=== PATIENT | female | born 1995 | race Caucasian/White ===

== ENCOUNTER 2016-04-30 12:12 | Emergency (ER) | payer SELFPAY ==
[2016-04-30 12:43] VITALS: BP 137/72; PULSE 108; TEMP 98.4; BMI 35.2
--- NOTE | 2016-04-30 12:48 | EDPRACDOC ---
- General Information Stated Complaint: LEFT ARM ABSCESS Time Seen by Provider: 04/30/16 12:41 Information Source: Patient Home Medications: Home Medications Ibuprofen 800 mg PO TID PRN #30 tablet 03/26/16 Ondansetron HCl [Zofran] 4 mg PO Q8H PRN #15 tab 03/26/16 Clindamycin [Cleocin] 300 mg PO TID #60 capsule 03/31/16 Pentazocine HCl/Naloxone HCl [Talwin Nx Tablet] 1 each PO Q6 #10 tablet Sulfamethoxazole/Trimethoprim [Bactrim Ds Tablet] 1 tab PO BID #20 tab 04/02/16 Cephalexin Monohydrate [Keflex] 500 mg PO QID #28 cap 04/30/16 Ketorolac Tromethamine 10 mg PO Q8H PRN #15 tab 04/30/16 Sulfamethoxazole/Trimethoprim [Bactrim Ds Tablet] 1 tab PO BID #14 tab 04/30/16 Allergies/Adverse Reactions: Allergies Allergy/AdvReac Type Severity Reaction Status Date / Time No Known Allergies Allergy Verified 04/02/16 07:55 - History of Present Illness Onset: 1 week HPI: Pt c/o L AC abscess x 1 week. Denies fever, red streaking. states IV drug abuser in past. R hand dominate Location: Reports: Extremity (L ac) Last Tetanus: Yes Relevent History Of: Reports: IV Drug Use Prior Abscess: Reports: Different Pain: Reports: Moderate Quality: Reports: Painful, Red Associated Signs & Symptoms: Reports: None ED Past Medical History - History Reviewed Yes Nurses notes reviewed and agree except as marked - Patient Medical History Neurological History: Reports: Migraine Psychological History: Reports: Depression, Substance Use Disorder (IVDA) - Social Medical History Smoking Status: Light tobacco smoker (less than 5/day) Social History: Reports: Substance Use Disorder (IVDA) ETOH: None Substance Abuse: Illicit Drugs EDM Review of Systems - Review of Systems Constitutional: No Symptoms Reported. negative: Fever, Chills, Weakness, Fatigue, Loss of Appetite Respiratory: No Symptoms Reported. negative: Cough, Brassy Cough, Barky Cough, Shortness of Breath, Wheezing, Hemoptysis Cardiovascular: No Symptoms Reported. negative: Chest Pain, Palpitations, Syncope, Edema, Orthopnea, PND, Skin Mottling, Cyanosis Neurological: No Symptoms Reported. negative: Headache, Dizziness, Seizure, Numbness, Weakness, Speech Difficulty, Gait Difficulty Musculoskeletal: No Symptoms Reported. negative: Neck, Chestwall, Ribs, Back, Shoulder, Arm, Elbow, Forearm, Wrist, Hand, Pelvis, Hip, Femur, Knee, Leg, Ankle , Foot Integumentary: Wound Allergic/Immunologic: No Symptoms Reported. negative: Hives, Itching Hematologic: No Symptoms Reported. negative: Lymphadenopathy, Easy Bruising, Easy Bleeding Psychiatric: No Symptoms Reported. negative: Anxiety, Depression, Hallucinations, Insomnia, Suicidal - Physical Exam Constitutional: Alert Oriented to: Time, Person, Place Last recorded Vital Signs: Last Vital Signs Temp 98.4 F 04/30/16 12:36 Pulse 108 04/30/16 12:36 Resp 18 04/30/16 12:36 BP 137/72 04/30/16 12:36 Pulse Ox 94 04/30/16 12:36 Oxygen Pulse Oxygen Saturation 94 O2 Device Room Air Oxygen Flow Rate Fraction of Inspired Oxygen ( FIO2) - HEENT Head: Normal ( normocephalic) - Respiratory/Cardiovascular Respiratory: Normal - CTA (BBS clear to auscultation without adventitious sounds ) Cardiovascular: Normal (RRR without murmur, gallop or rub) - Musculoskeletal Extremities: Normal (Normal tone, Pulses 2+ No cyanosis or edema, FROM) - Integumentary Skin: Normal, Warm, Dry Lymphatics: Normal (no adenopathy) - Neurologic Memory Impaired: Normal Motor Function: Normal (Normal tone, Pulses 2+ No cyanosis or edema, FROM) Mood Description: Normal Perception: Normal ED Abscess/Mass Exam - Integumentary Skin: Normal, Warm, Dry Mass: Red, Tender, Warm, Fluctuant, Pustule, Local Cellulitis Lymphatics: Normal Body Image: 1 - abscess ED Procedures - Incision and Drainage Informed of risks, benefits and alternatives described.: Yes Informed Consent Signed: Verbal Site: L ac Indication: Painful Mass Anesthetic: Lidocaine, with Epi Prep: Betadine Blade Size: 11 Incised Site drained: Reports: Blood, Pus Incised site was: Not irrigated, Not Packed with Iodoform - Differential Diagnosis Abscess, Cellulitis Decision Time to Discharge: 12:59 - Departure Disposition: Home Condition: Good Final Diagnosis: Abscess of left upper extremity Instructions: Abscess Incision and Drainage (ED) Education/Counseling Given To: Patient Education/Counseling Given Regarding: Diagnosis, Treatment, Follow Up Referrals: None,No Provider [Primary Care Provider] - One Week Vikash Delcid MD [Staff Physician] - One Week Prescriptions: Cephalexin Monohydrate [Keflex] 500 mg PO QID #28 cap Ketorolac Tromethamine 10 mg PO Q8H PRN #15 tab PRN Reason: Pain Sulfamethoxazole/Trimethoprim [Bactrim Ds Tablet] 1 tab PO BID #14 tab Additional Instructions: Keep wound clean and dry, apply warm compresses to affected area 20 mins at a time 4 - 5 times daily, return to the ED for any worsening symptoms or concerns.
== END 2016-04-30 13:05 | disposition home or self-care (01) ==
LOC: EDMC 12:12
DX: L02.414 Cutaneous abscess of left upper limb (principal); F19.10 Other psychoactive substance abuse, uncomplicated; F17.210 Nicotine dependence, cigarettes, uncomplicated
CPT/HCPCS: 10060; 99282; J3490